=== PATIENT | female | born 1995 | race Caucasian/White ===

== ENCOUNTER 2018-07-03 03:45 | Inpatient (IN) | payer OTHER ==
[~2018-07-03] VITALS: Ht 162.6 cm; Wt 65.2 kg
[~2018-07-03 03:45] MED LIST: PNV11TAB PO
[2018-07-03 04:07] VITALS: BP 114/68; PULSE 74; RESP 18
[2018-07-03] MEDS ORDERED: NITR-58 PO (04:10)
[2018-07-03] MEDS ORDERED: FERR134T PO (04:10)
[2018-07-03] MEDS ORDERED: CALC600T24 PO (04:10)
[2018-07-03] MEDS ORDERED: LACTATED RINGER'S 1,000 ML IV PRN (04:26)
[2018-07-03] MEDS ORDERED: MISOPROSTOL 200 MCG TAB PR PRN ×2 (04:30→13:30)
[2018-07-03] MEDS ORDERED: OXYTOCIN 30 UNITS/LR 500 ML IV PRN ×2 (04:30→13:30)
[2018-07-03] MEDS ORDERED: CARBOPROST 250 MCG INJ IM PRN ×2 (04:30→13:30)
[2018-07-03] MEDS ORDERED: BUTORPHANOL 1 MG INJ IV PRN (04:30)
[2018-07-03] MEDS ORDERED: OXYTOCIN 30 UNITS/LR 500 ML IV SCH ×3 (04:30→13:22)
[2018-07-03] MEDS ORDERED: LIDOCAINE 1% (MPF) 30 ML INJ INJ PRN (04:30)
[2018-07-03] MEDS ORDERED: BUTORPHANOL 2 MG INJ IV PRN (04:30)
[2018-07-03] MEDS ORDERED: METHYLERGONOVINE 0.2 MG INJ IM PRN ×2 (04:30→13:30)
[2018-07-03] MEDS: LACTATED RINGER'S 1,000 ML IV SCH ×2 (04:57→07:53)
--- NOTE | 2018-07-03 07:15 | PREAC ---
Date/Time of Note Date/Time of Note DATE: 07/03/18 TIME: 07:14 Anesthesia Eval and Record Evaluation Time Pre-Procedure Interview DATE: 07/03/18 TIME: 07:14 Age 22 Sex female NPO: 8 hrs Preoperative diagnosis labor pain Planned procedure epidural Past Medical History Past Medical History: Includes : Gestational age: (38.2) Surgery & Anesthesia Issues No known issue Meds Anticoagulation: No Beta Dianna within 24 hr: No Reason Beta Dianna not given: Pt. not on B-Dianna Reported Medications Nitrofurantoin Monohyd Macrocr* (Macrobid*) 100 Mg Capsr, 100 MG PO DAILY, CAP 07/03/18 Calcium Carbonate* (Calcium Carbonate*) 600 MG Ca Tab, 600 MG PO DAILY, TAB 07/03/18 Ferrous Sulfate (Iron) 134 Mg Tablet, 134 MG PO DAILY, TAB 07/03/18 [id number] ( ) 1 Each Tablet, 1 TAB PO DAILY, TAB 06/11/18 Current Medications Lactated Ringer's 1,000 ml @ 125 mls/hr Q8H IV Last administered on 07/03/18at 04:57; Admin Dose 125 MLS/HR; Start 07/03/18 at 04:26 Butorphanol Tartrate (Stadol) 1 mg Q2H PRN IV .PAIN; Start 07/03/18 at 04:30 Butorphanol Tartrate (Stadol) 2 mg Q2H PRN IV .PAIN; Start 07/03/18 at 04:30 Lidocaine (Xylocaine 1% (Mpf)) 30 ml ONCE PRN INJ .EPISIOTOMY; Start 07/03/18 at 04:30 Oxytocin/Lactated Ringer's 500 ml @ 500 mls/hr ONCE POST IV ; Start 07/03/18 at 04:30 Oxytocin/Lactated Ringer's 500 ml @ 125 mls/hr POST IV ; Start 07/03/18 at 04:30 Ibuprofen (Motrin) 600 mg ONCE PRN PO .PAIN 1-5; Start 07/03/18 at 04:30 Lactated Ringer's 1,000 ml @ 2,000 mls/hr Q30M PRN IV .ANESTHESIA; Start 07/03/18 at 04:26 Oxytocin/Lactated Ringer's 500 ml @ 0 mls/hr ONCE PRN IV .VAGINAL BLEEDING; Start 07/03/18 at 04:30 Methylergonovine Maleate (Methergine) 0.2 mg ONCE PRN IM .VAGINAL BLEEDING; Start 07/03/18 at 04:30 Carboprost Tromethamine (Hemabate) 250 mcg ONCE PRN IM .VAGINAL BLEEDING; Start 07/03/18 at 04:30 Misoprostol (Cytotec) 1,000 mcg ONCE PRN DE .VAGINAL BLEEDING; Start 07/03/18 at 04:30 Meds reviewed: Yes Allergies Coded Allergies: No Known Allergy (Unverified , 07/03/18) Allergies Reviewed: Yes Labs/Studies Labs Reviewed: Reviewed by anesthesiologist Result Diagram: 07/03/18 0450 Laboratory Tests 07/03/18 04:50 test: Positive Studies: ECG (n/a), CXR (n/a) Pre-procedure Exam Last vitals Vital Signs Date Temp Pulse Resp B/P (MAP) Pulse Ox O2 O2 Flow FiO2 Time Delivery Rate 07/03/18 98.3 74 18 114/68 Room Air 04:07 (83) Airway: Adequate mouth opening Mallampati: Mallampati I Teeth: Normal Lung: Normal Heart: Normal ASA Physical Status ASA physical status: 2 Emergency: None Planned Anesthetic Neuraxial: Epidural Pre-operative Attestations Prior to commencing anesthesia and surgery, the patient was re-evaluated, there was verification of: *The patient's identity *The results of appropriate recent lab work and preoperative vital signs *The above evaluation not changing prior to induction *Anesthetic plan, risk benefits, alternative and complications discussed with patient/family; questions answered; patient/family understands, accepts and wishes to proceed. MARCELLA CANO MD Jul 03, 2018 07:15
[2018-07-03] MEDS ORDERED: NALOXONE (0.4 MG/ML) INJ IV PRN (07:30)
[2018-07-03] MEDS ORDERED: ONDANSETRON 4 MG INJ IV PRN ×2 (07:30→13:30)
[2018-07-03] MEDS ORDERED: FENTAnyl 2MCG/ML-ROPIV 0.2% 100 ML BAG EPI SCH (07:30)
--- NOTE | 2018-07-03 07:33 | PAC ---
Date/Time of Note Date/Time of Note DATE: 07/03/18 TIME: 07:31 Post-Anesthesia Notes Post-Anesthesia Note Last documented vital signs Vital Signs Date Temp Pulse Resp B/P (MAP) Pulse Ox O2 O2 Flow FiO2 Time Delivery Rate 07/03/18 98.3 74 18 114/68 Room Air 04:07 (83) 07:36 BP 115/69 HR 68 RR18 temp 98.1 sat 99% Activity: WNL Respiratory function: WNL Cardiovascular function: WNL Mental status: Baseline Pain reasonably controlled: Yes Hydration appropriate: Yes Nausea/Vomiting absent: No MARCELLA CANO MD Jul 03, 2018 07:33
--- NOTE | 2018-07-03 13:22 | OPPN ---
Date/Time of Note Date/Time of Note DATE: 07/03/18 TIME: 13:20 Operative Report Planned Procedure Procedure date Jul 03, 2018 Procedure(s) Performed by see signature line Turner Off: A 2nd Turner Off none Pre-procedure diagnosis 37 WEEKS IUP IN LABOR [id number] Anesthesia Type: [id number] epidural Post-Procedure Post-procedure diagnosis 37 WEEKS IUP IN LABOR Findings Live Baby BOY, Apgars 8and 8, weight 7LBS 11OZ Estimated Blood Loss: 200 - 300 mls Specimen(s) none Grafts/Implant(s) none Complication(s) none NABILA CASTRO MD Jul 03, 2018 13:21
[2018-07-03] MEDS ORDERED: BENZOCAINE 20% 56 ML SPRAY TOP PRN (13:30)
[2018-07-03] MEDS ORDERED: ZOLPIDEM 5 MG TAB PO PRN (13:30)
[2018-07-03] MEDS ORDERED: HYDROCODONE/APAP (5/325) TAB PO PRN (13:30)
[2018-07-03] MEDS ORDERED: IBUPROFEN 600 MG TAB PO PRN (13:30)
[2018-07-03] MEDS ORDERED: METHYLERGONOVINE 0.2 MG TAB PO PRN (13:30)
[2018-07-03] MEDS ORDERED: MAGNESIUM HYDROXIDE 30ML CUP PO PRN (13:30)
[2018-07-03] MEDS ORDERED: NA PHOSPHATE/BIPHOS 133 ML ENEMA PR PRN (13:30)
[2018-07-03] MEDS ORDERED: WITCH HAZEL/GLYCERIN PAD PR PRN (13:30)
[2018-07-03] MEDS ORDERED: DIPHENHYDRAMINE 25 MG CAP PO PRN (13:30)
[2018-07-03] MEDS: IBUPROFEN 600 MG TAB PO PRN (14:30)
[2018-07-03 16:00] VITALS: BP 119/74; PULSE 70; RESP 20
[2018-07-03 17:00] VITALS: BP 120/78; PULSE 70; RESP 20
[2018-07-03] MEDS: LANOLIN HPA 1 PKT TOP PRN (17:53)
[2018-07-03 18:00] VITALS: BP 119/74; RESP 20
[2018-07-03 20:35] VITALS: BP 113/68; PULSE 97; RESP 18
[2018-07-03] MEDS: LACTATED RINGER'S 1,000 ML IV* SCH (21:22)
[2018-07-03] MEDS: SENNA/DOCUSATE NA (8.6MG/50MG) TAB PO SCH (21:24)
[2018-07-04] VITALS: BP 110/68; PULSE 95; RESP 18
[2018-07-04] MEDS: IBUPROFEN 600 MG TAB PO PRN ×3 (00:15→18:18)
[2018-07-04] MEDS: LACTATED RINGER'S 1,000 ML IV* SCH ×4 (03:00→21:22)
[2018-07-04 04:13] VITALS: BP 110/70; PULSE 98; RESP 16
[2018-07-04] MEDS: HYDROCODONE/APAP (5/325) TAB PO PRN (06:21)
[2018-07-04 08:00] VITALS: BP 117/74; PULSE 81; RESP 20
[2018-07-04] MEDS: SENNA/DOCUSATE NA (8.6MG/50MG) TAB PO SCH ×2 (08:57→21:12)
[2018-07-04 15:48] VITALS: BP 100/64; PULSE 85; RESP 16
[2018-07-04 20:12] VITALS: BP 110/59; PULSE 84; RESP 16
--- NOTE | 2018-07-04 20:24 | PN ---
Date/Time of Note Date/Time of Note DATE: 07/04/18 TIME: 20:23 Assessment/Plan VTE Prophylaxis Risk score (from Ns)>0 risk: 1 SCD applied (from Ns): No SCD contraindicated: low risk/ambulating Pharmacological prophylaxis: NA/contraindicated Pharm contraindication: low risk/ambulating Lines/Catheters [facility] Peripheral IV Assessment/Plan Assessment/Plan POST DAY 1 HOME TOMORROW RETURN TO CLINIC IN 2 WEEKS CONTINUE WITH VITAMINS OD AND FERROUS SULFATE PO TID DIET ADVISED COUNSELED INSTRUCTED CALL OFFICE IF THERE IS ANY PROBLEMS OR CONCERN Result Diagram: 07/04/18 0621 Results 24hrs Laboratory Tests Test 07/04/18 06:21 White Blood Count 13.0 #H Red Blood Count 3.78 L Hemoglobin 11.7 L Hematocrit 33.6 L Mean Corpuscular Volume 88.9 Mean Corpuscular Hemoglobin 31.0 Mean Corpuscular Hemoglobin Concent 34.8 Red Cell Distribution Width 12.5 Platelet Count 108 L Mean Platelet Volume 12.4 H Immature Granulocytes % 0.700 H Neutrophils % 77.9 H Lymphocytes % 13.5 L Monocytes % 7.2 Eosinophils % 0.5 Basophils % 0.2 Nucleated Red Blood Cells % 0.0 Immature Granulocytes # 0.090 H Neutrophils # 10.1 H Lymphocytes # 1.8 Monocytes # 0.9 Eosinophils # 0.1 Basophils # 0.0 Nucleated Red Blood Cells # 0.0 Subjective 24 Hr Interval Summary Free Text/Dictation FEELS GOOD, GOOD URINE OUTPUT, GOOD BOWEL MOVEMENT Exam/Review of Systems Exam Vitals Vital Signs Date Temp Pulse Resp B/P (MAP) Pulse Ox O2 O2 Flow FiO2 Time Delivery Rate 07/04/18 98.0 84 16 110/59 Room Air 20:12 (76) 07/04/18 98 04:13 Intake and Output 07/03/18 07/03/18 07/04/18 1515:00 23:00 07:00 IntakeIntake Total 2195 ml 305 ml 500 ml OutputOutput Total 750 ml 1357 ml BalanceBalance 1445 ml -1052 ml 500 ml Exam VITAL SIGNS STABLE: YES AFEBRILE: YES BREAST NOT ENGORGED, NON-TENDER, NO APPRECIABLE MASS: YES LUNGS CLEAR, NO RALES, WHEEZES, RHONCHI: YES SINUS RHYTHM WITHOUT MURMUR: YES ABDOMEN: NON-TENDER FUNDUS: BELOW UMBILICUS BOWEL SOUNDS: PRESENT UTERUS: FIRM EPISIOTOMY HEALING WELL: YES LOCHIA: LIGHT DEEP TENDON REFLEXES: 0 EXTREMITIES: NO CALF TENDERNESS EDEMA SCALE: NONE Results Results 24hrs Laboratory Tests Test 07/04/18 06:21 White Blood Count 13.0 #H Red Blood Count 3.78 L Hemoglobin 11.7 L Hematocrit 33.6 L Mean Corpuscular Volume 88.9 Mean Corpuscular Hemoglobin 31.0 Mean Corpuscular Hemoglobin Concent 34.8 Red Cell Distribution Width 12.5 Platelet Count 108 L Mean Platelet Volume 12.4 H Immature Granulocytes % 0.700 H Neutrophils % 77.9 H Lymphocytes % 13.5 L Monocytes % 7.2 Eosinophils % 0.5 Basophils % 0.2 Nucleated Red Blood Cells % 0.0 Immature Granulocytes # 0.090 H Neutrophils # 10.1 H Lymphocytes # 1.8 Monocytes # 0.9 Eosinophils # 0.1 Basophils # 0.0 Nucleated Red Blood Cells # 0.0 Medications Medication Current Medications Butorphanol Tartrate (Stadol) 1 mg Q2H PRN IV .PAIN; Start 07/03/18 at 04:30 Butorphanol Tartrate (Stadol) 2 mg Q2H PRN IV .PAIN; Start 07/03/18 at 04:30 Lidocaine (Xylocaine 1% (Mpf)) 30 ml ONCE PRN INJ .EPISIOTOMY; Start 07/03/18 at 04:30 Oxytocin/Lactated Ringer's 500 ml @ 500 mls/hr ONCE POST IV Last administered on 07/03/18at 13:30; Admin Dose 500 MLS/HR; Start 07/03/18 at 04:30 Oxytocin/Lactated Ringer's 500 ml @ 125 mls/hr POST IV Last administered on 07/03/18at 13:31; Admin Dose 125 MLS/HR; Start 07/03/18 at 04:30 Ibuprofen (Motrin) 600 mg ONCE PRN PO .PAIN 1-5 Last administered on 07/04/18at 18:18; Admin Dose 600 MG; Start 07/03/18 at 04:30 Lactated Ringer's 1,000 ml @ 2,000 mls/hr Q30M PRN IV .ANESTHESIA; Start 07/03/18 at 04:26 Naloxone HCl (Narcan) 0.2 mg Q2M PRN IV .RESP RATE; Start 07/03/18 at 07:30 Fentanyl/ Ropivacaine 100 ml EPIDURAL (PCEA) EPI ; Start 07/03/18 at 07:30 Lactated Ringer's 1,000 ml @ 125 mls/hr Q8H IV* Last administered on 07/04/18 03:00; Admin Dose 125 MLS/HR; Start 07/03/18 at 13:22 Methylergonovine Maleate (Methergine) 0.2 mg Q6H PRN PO .VAGINAL BLEED; Start 07/03/18 at 13:30 Ibuprofen (Motrin) 600 mg Q6 PRN PO MILD PAIN LEVEL 1-3; Start 07/03/18 at 13:30 Acetaminophen/ Hydrocodone Bitart (Arco (5/325)) 1 tab Q4H PRN PO MODERATE PAIN LEVEL 4-6 Last administered on 07/04/18 06:21; Admin Dose 1 TAB; Start 07/03/18 at 13:30 Acetaminophen/ Hydrocodone Bitart (Arco (5/325)) 2 tab Q4H PRN PO SEVERE PAIN LEVEL 7-10 Last administered on 07/03/18at 16:12; Admin Dose 2 TAB; Start 07/03/18 at 13:30 Ondansetron HCl (Zofran Inj) 4 mg Q6H PRN IV NAUSEA/VOMITING; Start 07/03/18 at 13:30 Diphenhydramine HCl (Benadryl) 25 mg Q6H PRN PO .PRUTITUS; Start 07/03/18 at 13:30 Zolpidem Tartrate (Ambien) 5 mg QHS PRN PO .INSOMNIA; Start 07/03/18 at 13:30 Senna/Docusate Sodium (Senokot-S) 1 tab BID PO Last administered on 07/04/18 08:57; Admin Dose 1 TAB; Start 07/03/18 at 21:00 Magnesium Hydroxide (Milk Of Mag) 30 ml Q12H PRN PO .CONSTIPATION Last administered on 07/04/18 08:57; Admin Dose 30 ML; Start 07/03/18 at 13:30 Sodium Biphosphate/ Sodium Phosphate (Fleet Enema) 133 ml DAILY PRN MD .CONSTIPATION; Start 07/03/18 at 13:30 Witch Linette/ Glycerin (Tucks Pads) 1 pad BEDSIDE MEDICATION PRN MD .HEMORRHOID/EPISIOTOMY PAIN Last administered on 07/03/18at 17:54; Admin Dose 40 PAD; Start 07/03/18 at 13:30 Benzocaine (Dermoplast Dupo) 1 spray BEDSIDE MEDICATION PRN TOP .HEM MORHOID/EPISIOTOMY PAIN Last administered on 07/03/18at 17:53; Admin Dose 56 SPRAY; Start 07/03/18 at 13:30 Lanolin (Lanolin Hpa) 1 applic BEDSIDE MEDICATION PRN TOP .NIPPLES Last administered on 07/03/18at 17:53; Admin Dose 1 APPLIC; Start 07/03/18 at 13:30 Measles/Mumps/ Rubella Vaccine Live (Mmr Ii Vaccine) 0.5 ml ONCE ONCE SC* ; Start 07/05/18 at 09:00; Stop 07/05/18 at 09:01 Diphtheria/ Tetanus/Acell Pertussis (Adacel) 0.5 ml ONCE ONCE IM* ; Start 07/05/18 at 09:00; Stop 07/05/18 at 09:01 Varicella Virus Vaccine Live (Varivax Vaccine With Diluent) 1,350 unit ONCE ONCE SC* ; Start 07/05/18 at 09:00; Stop 07/05/18 at 09:01 Oxytocin/Lactated Ringer's 500 ml @ 0 mls/hr ONCE PRN IV .VAGINAL BLEEDING; Start 07/03/18 at 13:30 Methylergonovine Maleate (Methergine) 0.2 mg ONCE PRN IM .VAGINAL BLEEDING; Start 07/03/18 at 13:30 Carboprost Tromethamine (Hemabate) 250 mcg ONCE PRN IM .VAGINAL BLEEDING; Start 07/03/18 at 13:30 Misoprostol (Cytotec) 1,000 mcg ONCE PRN MD .VAGINAL BLEEDING; Start 07/03/18 at 13:30 NABILA CASTRO MD Jul 04, 2018 20:24
[2018-07-04] MEDS ORDERED: BISACODYL 10 MG SUPP PR ONE (21:00)
[2018-07-04] MEDS ORDERED: MAGNESIUM HYDROXIDE 30ML CUP PO ONE (21:00)
[2018-07-05 04:00] VITALS: BP 116/70; PULSE 71; RESP 16
[2018-07-05] MEDS: HYDROCODONE/APAP (5/325) TAB PO PRN (04:37)
[2018-07-05] MEDS: LACTATED RINGER'S 1,000 ML IV* SCH (05:22)
[2018-07-05] MEDS ORDERED: MAGNESIUM HYDROXIDE 30ML CUP PO ONE (06:00)
[2018-07-05 08:38] VITALS: BP 103/61; PULSE 90; RESP 16
[2018-07-05] MEDS ORDERED: VARICELLA VACCINE LIVE/PF 1,350 UNIT/0.5 ML ML SC* ONE (09:00)
[2018-07-05] MEDS ORDERED: DIPHTH/TET/ACEL PERTUSS (ADULT) 0.5 ML VIAL IM* ONE (09:00)
[2018-07-05] MEDS ORDERED: MEASLES,MUMPS,RUBELLA VACCINE INJ SC* ONE (09:00)
[2018-07-05] MEDS: SENNA/DOCUSATE NA (8.6MG/50MG) TAB PO SCH (09:00)
--- NOTE | 2018-07-05 10:01 | PREOPHP ---
DATE OF ADMISSION: 07/03/2018 HISTORY OF PRESENT ILLNESS: This is a 22-year-old lady, 1, EDC 07/15/2018 at 38 and 2/7 week s, admitted in active labor. She had care in my [place] office and the care was un eventful. She started to have contractions about a few hours prior to admission and got worse up to the time of admission. PAST PERSONAL HISTORY: No history of TB, asthma. ALLERGIES: No allergies. SOCIAL HISTORY: Patient does not smoke. She does not drink. MEDICATIONS: She does not take any drugs except her iron and vitamins. GYNECOLOGIC HISTORY: She had menarche at the age of 12, every 28 days interval, 3 to 4 days duration , and moderate in amount. FAMILY HISTORY: Noncontributory. She is 1. REVIEW OF SYSTEMS: CARDIOVASCULAR: No chest pains. RESPIRATORY: No cough. GASTROINTESTINAL: No diarrhea, no vomiting. GENITOURINARY: No dysuria. PHYSICAL EXAMINATION: GENERAL: Reveals a conscious, coherent lady and in no acute distress. VITAL SIGNS: Her blood pressure 120/80, pulse rate 80 per minute, respirations 16 per minute. BREASTS, HEART AND LUNGS: Within normal limits. ABDOMEN: Soft, fundic height 38 cm. heart tones 140 per minute. PELVIC: Done by me at 6 a.m. on 07/03/2018 revealed the cervix to be 4 cm dilated, 100% effaced, sta tion 0 in cephalic presentation with the bag of water intact and bulging. Good blood issue was noted . EXTREMITIES: No pedal edema. ADMITTING DIAGNOSIS: 38-2/7 week's intrauterine in labor. The plans of delivery were expl ained to the patient as to go for vaginal delivery. The risks, benefits, and alternatives to vaginal delivery and explained to the patient and she understood everything totally. The risks of explained. She wanted to go for vaginal delivery, so she had artificial ruptu re of membranes. scalp electrodes and IPC was inserted. The estimated weight by ultraso und was 8 pounds 10 ounces and then she was given labor epidural. PLAN: The patient progressed well. Dictated By: NABILA RAMOS/CATHY Conf#: [id number] DID#: [id number] CC: NABILA CASTRO MD;*[facility]*
--- NOTE | 2018-07-05 10:29 | OPR ---
DATE OF OPERATION: 07/03/2018 OPERATION PERFORMED: This is a 22-year-old lady, 1, EDC 07/15/2018 at 38-2/7 weeks, admitted in labor. HISTORY OF PRESENT ILLNESS: See dictated history and physical. PHYSICAL EXAMINATION: See dictated history and physical. ADMITTING DIAGNOSIS: 38-2/7 weeks intrauterine in labor PROGRESS OF LABOR: See dictated history and physical. Patient progressed well. She received labor epidural. She had good contractions. She had a normal spontaneous vaginal delivery and delivered a healthy baby boy on 07/03/2018 at 12:47 p.m. 8 and 8 over midline episiotomy. There was 1 loo p of tight cord around the baby's neck that needs to be cut prior to the delivery of the rest of the body of the baby. Cord segment was obtained for blood gases. The cord around the neck was noted to be very tight. The placenta was delivered spontaneously and complete. Manual exploration of the [place] revealed no membranes left behind. The cervix, vagina, and vulva were free of hematoma. T he position was direct occiput anterior. There were 3 vessels in the cord. The placenta was normal with a small shiny side and a pinkish maternal side. Midline episiotomy was repaired in layers using 2-0 chromic with 1% Xylocaine. The patient tolerated the delivery well. Estimated blood loss about 300 mL. She delivered a healthy baby boy weighing 7 pounds 11 ounces, 3475 grams. Dictated By: NABILA CASTRO MD NS/NTS Conf#: [id number] DID#: [id number] CC: NABILA CASTRO MD;*[facility]*
[2018-07-05] MEDS: LANOLIN HPA 1 PKT TOP PRN ×2 (14:55)
== END 2018-07-05 15:40 | disposition home or self-care (01) | DRG 807 ==
LOC: L-D 03:45 → OBT 03:45 → L-D 04:25 → OBT 04:25 → L-D 05:37 → PP1 16:08
PROVIDERS: ADMIT Obstetrics & Gynecology; ATTEND Obstetrics & Gynecology
PROC: 10E0XZZ Delivery of Products of Conception, External Approach (ICD-10-PCS; principal; 2018-07-03)
PROC: 0W8NXZZ Division of Female Perineum, External Approach (ICD-10-PCS; 2018-07-03)
PROC: 10907ZC Drainage of Amniotic Fluid, Therapeutic from Products of Conception, Via Natural or Artificial Opening (ICD-10-PCS; 2018-07-03)
DX: O69.1XX0 Labor and delivery complicated by cord around neck, with compression, not applicable or unspecified (principal); Z37.0 Single live birth; Z3A.38 38 weeks gestation of pregnancy
CPT/HCPCS: 62319; 76815; 85025; 85610; 85730; 86592; 86850; 86900; 86901; 87340; 90715; 90716; G0463; J2590; J3010; J7120